=== PATIENT | female | born 1970 | race Caucasian/White ===

== ENCOUNTER 2020-03-23 08:16 | Outpatient (CLI) | payer OTHER, SELFPAY ==
--- NOTE | ~2020-03-23 | MM_ITS ---
EXAMINATION: MM screening [facility] BI w radha HISTORY: Screening mammogram TECHNIQUE: Craniocaudal and mediolateral oblique 3-D tomosynthesis images were obtained and synthetic 2-D images were generated. CAD analysis was submitted and interpreted. COMPARISON: , 09/26/2012 bilateral digital screening mammogram examinations BREAST PARENCHYMAL COMPOSITION: There are scattered areas of fibroglandular density. FINDINGS: There is no evidence of suspicious mass, calcification, or architectural distortion to sugg est malignancy in either breast. There has been no suspicious interval change. IMPRESSION: 1. No mammographic evidence of malignancy. 2. Recommend routine screening mammography in one year. BI-RADS Category 1: Negative Reviewed, dictated and finalized at location A. DONTIC ASSISTANT
--- NOTE | ~2020-03-23 | CT_ITS ---
EXAMINATION: CT sinus wo con DATE: 03/23/2020 08:42 INDICATION: Chronic sinusitis TECHNIQUE: Computed tomography (CT) of the paranasal sinuses was performed without intravenous contra st. The dose-length product was 303.09 mGy-cm. Automated exposure control and iterative reconstructio n technique were employed. COMPARISON: None FINDINGS: There is mucosal thickening of the maxillary, ethmoid and left sphenoid sinuses. There are bilateral yaa bullosa. There is rightward nasal septal deviation. Ostiomeatal units are patent. Ma stoids are pneumatized. IMPRESSION: 1. Mild paranasal sinus disease with rightward nasal septal deviation. Reviewed, dictated and finalized at location A. TER FOLDER
== END 2020-03-23 08:17 | disposition home or self-care (01) ==
PROVIDERS: PCP Internal Medicine; Visit Provider Otolaryngology
DX: J32.9 Chronic sinusitis, unspecified (principal); Z12.31 Encounter for screening mammogram for malignant neoplasm of breast
CPT/HCPCS: 70486; 77063; 77067

== ENCOUNTER → 2020-10-18 00:28 | Outpatient (CLI) | payer OTHER, SELFPAY | PROVIDERS: PCP Internal Medicine; Visit Provider Otolaryngology | DX: Z01.812 Encounter for preprocedural laboratory examination (principal); Z20.822 Contact with and (suspected) exposure to COVID-19 | CPT/HCPCS: C9803; U0003; U0005 ==

== ENCOUNTER 2020-10-21 00:59 | Day surgery (SDC) | payer OTHER, SELFPAY ==
[2020-10-06 13:38] VITALS: BMI 43.5
--- NOTE | 2020-10-20 06:39 | PM.HPGS ---
History of Present Illness History of Present Illness Consent: Risks, benefits, and alternatives have been discussed and questions answered. Patient agrees to proceed with procedure. Chief complaint: septal deviation, turbinate hypertrophy Narrative: Serena Maldonado is a 49 year old female With a long history of inability to breathe out of her nose and chronic sinus complaints she has been on multiple medications and antibiotics she is admitted for septoplasty bilateral inferior turbinectomy maxillary antrostomy and ethmoidectomy Review of Systems Review of Systems: All systems reviewed & are unremarkable except as noted in HPI and below PMFSH Social History Social History Smoking status: Never smoker Alcohol intake: never Substance use: never Substance use type: does not use Spiritual care concerns: No Meds Home Medications and Allergies Home Medications Medication Instructions Recorded Confirmed Type cetirizine-pseudoephedrine 1 tablet PO DAILY 10/06/20 10/06/20 History [Zyrtec-D] cholecalciferol (vitamin D3) 125 mcg PO DAILY 10/06/20 10/06/20 History [Vitamin D3] vitamin B complex [B 1 tablet PO DAILY 10/06/20 10/06/20 History Complex-Vitamin B12] Allergies Allergy/AdvReac Type Severity Reaction Status Date / Time Cephalosporins Allergy Mild Rash Verified 10/06/20 13:36 Exam Narrative: Exam Narrative: chest clear however the rims abdomen soft was negative septum deviated to the right with marked obstruction Assessment and Plan Additional Plan plan is a septoplasty bilateral inferior turbinectomy maxillary antrostomy and ethmoidectomy
--- NOTE | 2020-10-21 06:10 | WPDHPUPDATE1 ---
History and Physical Update Update Date/Time: 10/21/20 06:10 History and Physical has been reviewed, including an updated exam of the patient. There are NO changes in the patient's condition. Risks, benefits, and alternatives have been discussed and questions answered. Patient agrees to proceed with procedure.
[2020-10-21 08:14] VITALS: BP 143/97; PULSE 78; RESP 20; TEMP 36.4; O2SAT 98; BMI 44.0
--- NOTE | 2020-10-21 08:15 | P.PNAN_ITS ---
Anes - Initial Pre Proc Eval Procedure: Operation Date: 10/21/20 08:45 Proposed Procedures p Image Guided, Bilateral Inferior Turbinectomy, Bilateral Maxillary Antrostomy, Ethmoidectomies - Colin Vela MD s Septoplasty - Colin Vela MD Date/Time: 10/21/20 08:15 Surgeon: Colin Vela MD Pre Op Diagnosis: septal deviation, turbinate hypertrophy Patient Data Age: 49 Gender: F Height: 1.68 m Weight: 122.47 kg Allergies Allergy/AdvReac Type Severity Reaction Status Date / Time Cephalosporins Allergy Mild Rash Verified 10/06/20 13:36 Home Medications Medication Instructions Recorded Confirmed Type cetirizine-pseudoephedrine 1 tablet PO DAILY 10/06/20 10/06/20 History [Zyrtec-D] cholecalciferol (vitamin D3) 125 mcg PO DAILY 10/06/20 10/06/20 History [Vitamin D3] vitamin B complex [B 1 tablet PO DAILY 10/06/20 10/06/20 History Complex-Vitamin B12] Patient hx anesthesia problems: none Family hx anesthesia problems: none [facility] Past Medical History Medical History (Updated 10/21/20 @ 08:19 by Sami Cohn MD) Morbid obesity Surgical History Surgical History (Updated 10/21/20 @ 08:19 by Sami Cohn MD) H/O sinus surgery Social History Social History Smoking status: Never smoker Alcohol intake: never Substance use: never Substance use type: does not use Living arrangements: with family Spiritual care concerns: No Anes - Eval Final PreProcedure Day of Procedure 10/21/20 08:15 Patient weight: morbidly obese Heart: regular rate and rhythm Lungs: clear to auscultation Airway: Mallampati scale class II Neurological: alert and oriented Last oral intake: >/= 8 hours ASA classification: III Emergent: no Anesthetic plan: proceed Anesthesia type and monitoring: general ETT and standard monitoring Informed Consent: The patient's anesthetic plan and its attendant risks and benefits were discussed with the patient/family/POA. Questions were solicited and answers provided to the satisfaction of the patient/family/POA.
[2020-10-21] MEDS: LACTATED RINGERS 1,000 ML 30 ML IV CONT ×2 (08:21→10:11)
[2020-10-21] MEDS: ACETAMINOPHEN 500 MG TABLET 1000 MG PO (08:24)
[2020-10-21] MEDS: COCAINE HCL (*CRX) 4% TOP SOLN 4 ML VIAL 1 APPLIC TOPICAL (09:29)
[2020-10-21] MEDS: LIDO 1%/EPINEPHRINE 1:100,000 20 ML VIAL 15 ML INFILTRATE (09:54)
--- NOTE | 2020-10-21 10:01 | W.PM.PROC2 ---
Procedure Note - Detailed Date of Procedure 10/25/20 Pre-op Diagnosis septal deviation, turbinate hypertrophy bilateral ethmoid sinusitis Post-op Diagnosis same Procedure Performed Septoplasty bilateral anterior posterior ethmoidectomy bilateral maxillary antrostomy inferior turbinectomy bilateral Surgeon Colin Vela MD Description of Procedure Patient was prepped and draped fashion general anesthesia the nose was packed with 4% cocaine cottonoids and injected xylocaine with adrenaline on the right side the middle turbinate was medialized yaa bullosa opened the ethmoid was opened with a micro debrider the maxillary antrum was enlarged and connected with the ethmoid this procedure was repeated in the other ear was other side with similar findings a right christina transfix was made left anterior and posterior is elevated the bony cartilage junction and a right posterior tunnel elevated bony deviation was removed a strip of septal cartilage remove the maxillary crest a swelling the cartilage the bony remnants of the midline incision closed with 4 0 chromic and Yadav splints sutured with 2 0 silk hemostatic sponge was placed in both ethmoids left right yaa bullosa was opened and enlarged with micro debride her and forceps bilateral inferior turbinates were outfractured patient was awakened returned to recovery patient Estimated Blood Loss 10 Packing Yes Pathology none sent Complications No immediate complications Condition stable Disposition PACU
[2020-10-21 10:03] VITALS: BP 142/92; PULSE 86; RESP 18; TEMP 37.3; O2SAT 100
[2020-10-21 10:15] VITALS: BP 139/83; PULSE 80; RESP 12; O2SAT 100
[2020-10-21 10:30] VITALS: BP 145/89; PULSE 80; RESP 16; O2SAT 97
[2020-10-21 10:43] VITALS: BP 144/85; PULSE 78
[2020-10-21 11:10] VITALS: BP 136/78; PULSE 72
== END 2020-10-21 11:22 | disposition home or self-care (01) ==
PROVIDERS: PCP Internal Medicine; Visit Provider Otolaryngology
PROC: (CPT 31255; principal; 2020-10-21 08:45)
PROC: (CPT 30520; 2020-10-21 08:45)
DX: J34.2 Deviated nasal septum (principal); J34.3 Hypertrophy of nasal turbinates; J32.2 Chronic ethmoidal sinusitis; E66.01 Morbid (severe) obesity due to excess calories; Z68.41 Body mass index [BMI] 40.0-44.9, adult
CPT/HCPCS: 31255; 31256; 30140; 30520; A9270; J0330; J1100; J1170; J2250; J2405; J2704; J3010; J7120

== ENCOUNTER 2022-05-18 07:49 | Outpatient (CLI) | payer OTHER, SELFPAY ==
--- NOTE | ~2022-05-18 | MM_ITS ---
EXAMINATION: MM screening [facility] BI w radha HISTORY: Screening mammogram TECHNIQUE: Craniocaudal and mediolateral oblique 3-D tomosynthesis images were obtained and synthetic 2-D images were generated. CAD analysis was submitted and interpreted. COMPARISON: 03/23/2020, 10/23/2017, 09/26/2012 BREAST PARENCHYMAL COMPOSITION: There are scattered areas of fibroglandular density. FINDINGS: No suspicious mass, calcification, or architectural distortion are identified in either clarence ast to suggest malignancy. There has been no suspicious interval change. IMPRESSION: 1. No mammographic evidence of malignancy. 2. Recommend routine screening mammography in one year. BI-RADS Category 1: Negative Reviewed, dictated and finalized at location A. SFORCE BUSINESS ANALYST
== END 2022-05-18 07:50 | disposition home or self-care (01) ==
PROVIDERS: PCP Internal Medicine
DX: Z12.31 Encounter for screening mammogram for malignant neoplasm of breast (principal)
CPT/HCPCS: 77063; 77067

== ENCOUNTER 2022-07-16 08:02 | Emergency (ER) | payer OTHER, SELFPAY ==
[2022-07-16 08:08] VITALS: BP 153/90; PULSE 82; RESP 20; TEMP 36.6; O2SAT 98
--- NOTE | 2022-07-16 08:10 | ED.URI ---
HPI - URI/Sore Throat General Chief Complaint: Ear Stated Complaint: Ear Pain Time Seen by Provider: 07/16/22 08:12 Source: patient, RN notes reviewed and old records reviewed Mode of arrival: ambulatory Limitations: no limitations History of Present Illness HPI Narrative: 51 year old female who presents to express care accompanied by spouse with complaints of right ear pain on Sunday with some pink tinged fluid with pressure with muffled hearing Patient reports that she saw ENT on the 2nd of the month and was treated with sinus infection with Doxycycline at that time and has been using Flonase. Patient reports that she has been taking ibuprofen for pain and continues to use her Flonase daily, reports no known fevers. MD elicited complaint: rhinorrhea and other (right ear pain and drainage) Pertinent past history: sinusitis Onset (ago): day(s) (day 3 of symptoms) Pain scale (0-10): 8 Able to tolerate fluids by mouth: Yes Treatments prior to arrival: ibuprofen Related Data Home Medications Medication Instructions Recorded Confirmed cholecalciferol (vitamin D3) 125 125 mcg PO DAILY 10/06/20 07/16/22 mcg (5,000 unit) tablet (Vitamin D3) vitamin B complex (B 1 tablet PO DAILY 10/06/20 07/16/22 Complex-Vitamin B12 tablet) Allergies Allergy/AdvReac Type Severity Reaction Status Date / Time Cephalosporins Allergy Mild Rash Verified 07/16/22 08:16 Review of Systems Review of Systems: CONSTITUTIONAL: Denies malaise, chills, sweats, or fever. EYES: Denies visual changes, redness, or discharge. ENT: Reports rhinorrhea, congestion, sinus pain, right otalgia no sore throat. CARDIOVASCULAR: Denies chest pain, palpitations, or edema. RESPIRATORY: Reports no cough.? Denies dyspnea. GASTROINTESTINAL: Denies abdominal pain, nausea, vomiting, diarrhea SKIN: Denies rash or itching. MUSCULOSKELETAL: Denies myalgia. NEUROLOGIC: Denies headache. All systems reviewed & are unremarkable except as noted in HPI and below PMFSH Past Medical History Medical History Morbid obesity Surgical History Surgical History H/O sinus surgery Social History Social History Smoking status: Never smoker Alcohol intake: never Substance use: never Substance use type: does not use Lack of Transportation: No Lack of Food: Never True Current Housing: I Have Housing Concerned About Future Housing: No Difficulty Paying Gas/Electric Bills: No Difficulty Paying for Meds: No Currently Unemployed: No Education: Bachelor's Degree Difficulty w/ Childcare or Family Care: No Living arrangements: with family Spiritual care concerns: No Comments At time of signature, agree with nursing past medical, surgical, social and family history. There is no relevant family history pertinent to the presenting complaint Exam Narrative: GENERAL: Well-appearing, well-nourished, and in no acute distress. HEAD: Normocephalic EYES: PERRLA, conjunctivae clear ENT: Nares clear, turbinates edematous and erythematous, clear discharge. Mucous membranes moist. Right TM red with bloody drainage with perforation left TM pearly centeno with dull light reflex bilaterally; no tragal tenderness. Oropharynx erythematous without lesions. Tonsils not enlarged and without exudate, no drooling, no hoarseness, no trismus, uvula midline. NECK: Supple. No lymphadenopathy CHEST: Clear to auscultation, breath sounds equal. No wheezing, rhonchi, rales, or stridor. No respiratory distress, speaks in full sentences. No cough noted SaO2 98% room air HEART: Regular rate and rhythm. No murmur heard. SKIN: Warm, dry, no rash. NEURO: Alert and oriented x3. PSYCH: Normal mood and affect Course Course Emergency Course: Patient is aware of diagnosis, understands and agrees
== END 2022-07-16 08:40 | disposition home or self-care (01) ==
PROVIDERS: Emergency Provider Registered Nurse; PCP Internal Medicine
DX: H66.001 Acute suppurative otitis media without spontaneous rupture of ear drum, right ear (principal)
CPT/HCPCS: 99213; G0463

== ENCOUNTER 2022-08-22 12:50 | Outpatient (CLI) | payer OTHER, SELFPAY | END 2022-08-22 12:51 | disposition home or self-care (01) | LOC: ANHAUDIO 12:53 | PROVIDERS: PCP Internal Medicine; Visit Provider Otolaryngology | DX: H83.01 Labyrinthitis, right ear (principal); H91.93 Unspecified hearing loss, bilateral | CPT/HCPCS: 92557; 92567 ==

== ENCOUNTER 2023-05-28 14:48 | Outpatient (CLI) | payer OTHER, SELFPAY ==
--- NOTE | ~2023-05-28 | MM_ITS ---
EXAMINATION: MM screening [facility] BI w radha HISTORY: Screening TECHNIQUE: Craniocaudal and mediolateral oblique 3-D tomosynthesis images were obtained and synthetic 2-D images were generated. CAD analysis was submitted and interpreted. COMPARISON: Comparison to multiple prior studies sequentially, with oldest reviewed study dated 10/23. BREAST PARENCHYMAL COMPOSITION: Breast composed of scattered areas of fibroglandular density FINDINGS: There is no evidence of suspicious mass, calcification, or architectural distortion to sugg est malignancy in either breast. There has been no suspicious interval change. IMPRESSION: 1. No mammographic evidence of malignancy. 2. Recommend routine screening mammography in one year. BI-RADS Category 1: Negative Reviewed, dictated and finalized at location A. 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
== END 2023-05-28 14:49 | disposition home or self-care (01) ==
PROVIDERS: PCP Internal Medicine
DX: Z12.31 Encounter for screening mammogram for malignant neoplasm of breast (principal)
CPT/HCPCS: 77063; 77067

== ENCOUNTER 2023-08-27 09:48 | Outpatient (CLI) | payer OTHER, SELFPAY ==
--- NOTE | ~2023-08-27 | CT_ITS ---
EXAMINATION: CT sinus wo con DATE: 08/27/2023 10:07 INDICATION: Sinusitis TECHNIQUE: Computed tomography (CT) of the paranasal sinuses was performed without intravenous contra st. The dose-length product was 279.81 mGy-cm. Automated exposure control and iterative reconstructio n technique were employed. COMPARISON: CT dated 03/23/2020 FINDINGS: There is mucosal thickening of the left frontal, maxillary and ethmoid sinuses. There are s urgical changes consistent with resection of the ostiomeatal units. There is a right mastoid air effu roxanne. Rightward nasal septal deviation. There is mild mucoperiosteal reaction of the maxillary sinuse s. IMPRESSION: 1. Moderate chronic sinusitis. Reviewed, dictated and finalized at location B.
== END 2023-08-27 09:49 | disposition home or self-care (01) ==
LOC: CHSIMG 09:50
PROVIDERS: PCP Internal Medicine; Visit Provider Otolaryngology
DX: J32.9 Chronic sinusitis, unspecified (principal); J33.9 Nasal polyp, unspecified
CPT/HCPCS: 70486

== ENCOUNTER 2023-08-28 00:11 | Day surgery (SDC) | payer OTHER, SELFPAY ==
[2023-08-14 16:07] VITALS: BMI 39.3
[2023-08-28 06:40] VITALS: BP 143/97; PULSE 86; RESP 18; TEMP 36.1; O2SAT 98; BMI 38.2
[2023-08-28] MEDS: LACTATED RINGERS 1,000 ML 150 ML IV CONT (07:00)
--- NOTE | 2023-08-28 08:04 | PM.IMHP ---
H&P: HPI History of Present Illness Date/Time: 08/28/23 08:04 Chief Complaint: Screening for colorectal Narrative: This is a 52-year-old woman who presents for her 1st colonoscopy. She denies any hematochezia or melena. She is adopted and does not know her family history. Review of Systems Review of Systems: All systems reviewed & are unremarkable except as noted in HPI and below Constitutional: Constitutional: Denies chills, Denies fever(s), Denies headache(s) and Denies weight loss Eyes: Eyes: Denies change in vision ENT: Denies dizziness, Denies headache(s), Denies neck mass and Denies throat swelling Cardiovascular: Cardiovascular: Denies chest pain, Denies lightheadedness and Denies dyspnea Respiratory: Respiratory: Denies cough, Denies dyspnea and Denies wheezing Gastrointestinal: Gastrointestinal: Denies abdominal pain, Denies change in bowel habits, Denies nausea and Denies vomiting Genitourinary: Genitourinary: Denies hematuria and Denies dysuria Musculoskeletal: Musculoskeletal: Reports as per HPI Integumentary/Breasts: Skin/Breast: Reports as per HPI Neurologic: Denies dizziness and Denies headache(s) Allergic/Immunologic: Allergic/Immunologic: Denies throat swelling and Denies wheezing PMF Past Medical History Medical History Morbid obesity Surgical History Surgical History H/O sinus surgery Social History Social History Smoking status: Never smoker Alcohol intake: current Substance use: never Substance use type: does not use Lack of Transportation: No Lack of Food: Never True Current Housing: I Have Housing Concerned About Future Housing: No Difficulty Paying Gas/Electric Bills: No Difficulty Paying for Meds: No Currently Unemployed: No Education: Bachelor's Degree Difficulty w/ Childcare or Family Care: No Living arrangements: with family Spiritual care concerns: No Meds Home Medications and Allergies Home Medications Medication Instructions Recorded Confirmed Type dupilumab 300 mg/2 mL subcutaneous 300 mg subcut .2xmonthly 02/07/23 08/28/23 History pen injector (Dupixent) budesonide 0.25 mg/2 mL suspension 0.25 mg (2 mL) irrigation BID #120 08/04/23 08/28/23 Rx for nebulization mL Allergies Allergy/AdvReac Type Severity Reaction Status Date / Time Cephalosporins Allergy Mild Rash Verified 08/28/23 06:48 Vital Signs Vital Signs - 24 hr 08/28/23 06:40 Temperature 36.1 C L Pulse Rate 86 Respiratory Rate 18 Blood Pressure 143/97 H Pulse Oximetry 98 Oxygen Delivery Room Air Exam Const: General: no acute distress and alert Orientation/consciousness: patient oriented x3 HENMT: Head: normocephalic and atraumatic Ears: hearing grossly normal bilaterally Face/Nose/Sinus: Normal nares present Mouth: Yes Normal oral and palatal mucosa present Eyes: Periorbital: periorbital findings normal Sclera: sclerae normal EOM: EOMs intact bilaterally Neck: Neck: normal visual inspection, no lymphadenopathy and trachea midline Chest: Chest palpation & inspection: normal inspection of the chest Resp: Effort & Inspection: normal respiratory effort Auscultation: clear to auscultation bilaterally Cardio: Jugular venous distension: no JVD Rate: regular rate Rhythm: regular rhythm Heart sounds: S1 normal heart sound present and S2 normal heart sound present Peripheral pulses: Peripheral pulses 2+ throughout GI: Inspection: normal to inspection GI Palp: Yes Soft to palpation, No Tenderness to palpation present (GI), No Guarding due to palpation present (GI) and No Rebound tenderness present Percussion: Yes normal to percussion Auscultation: normal bowel sounds : General: Yes no CVA tenderness Back/Spine/Pelvis: Back: no CVA tenderness Neuro: Genera
--- NOTE | 2023-08-28 08:07 | P.PNAN_ITS ---
Anes - Initial Pre Proc Eval Procedure: Operation Date: 08/28/23 08:00 Proposed Procedures p Screening Colonoscopy - Dario Manzano DO Date/Time: 08/28/23 08:07 Surgeon: Dario Manzano DO Pre Op Diagnosis: Screening for malignant neoplasm of colon Patient Data Age: 52 Gender: F Height: 1.68 m Weight: 107.4 kg Last Vital Signs Temp 97.0 F L 08/28/23 06:40 Pulse 86 08/28/23 06:40 Resp 18 08/28/23 06:40 BP 143/97 H 08/28/23 06:40 Pulse Ox 98 08/28/23 06:40 O2 Del Method Room Air 08/28/23 06:40 Allergies Allergy/AdvReac Type Severity Reaction Status Date / Time Cephalosporins Allergy Mild Rash Verified 08/28/23 06:48 Home Medications Medication Instructions Recorded Confirmed Type dupilumab 300 mg/2 mL subcutaneous 300 mg subcut .2xmonthly 02/07/23 08/28/23 History pen injector ([employer]) budesonide 0.25 mg/2 mL suspension 0.25 mg (2 mL) irrigation BID #120 08/04/23 08/28/23 Rx for nebulization mL Patient hx anesthesia problems: none Family hx anesthesia problems: none Results Review: All pre-operative results and documents have been reviewed as part of the pre- operative evaluation. [facility] Past Medical History Medical History Morbid obesity Surgical History Surgical History H/O sinus surgery Social History Social History Smoking status: Never smoker Alcohol intake: current Substance use: never Substance use type: does not use Lack of Transportation: No Lack of Food: Never True Current Housing: I Have Housing Concerned About Future Housing: No Difficulty Paying Gas/Electric Bills: No Difficulty Paying for Meds: No Currently Unemployed: No Education: Bachelor's Degree Difficulty w/ Childcare or Family Care: No Living arrangements: with family Spiritual care concerns: No Anes - Eval Final PreProcedure Day of Procedure 08/28/23 08:07 Patient weight: morbidly obese Heart: regular rate and rhythm Lungs: clear to auscultation Airway: Mallampati scale class II Neurological: alert and oriented Last oral intake: >/= 8 hours ASA classification: III Emergent: no Anesthetic plan: proceed Anesthesia type and monitoring: general GIVS and standard monitoring Results Review: All pre-operative results and documents have been reviewed as part of the pre- operative evaluation. Informed Consent: The patient's anesthetic plan and its attendant risks and benefits were discussed with the patient/family/POA. Questions were solicited and answers provided to the satisfaction of the patient/family/POA.
[2023-08-28 08:51] VITALS: BP 106/66; PULSE 75; RESP 22; O2SAT 94
[2023-08-28 09:01] VITALS: BP 115/72; PULSE 70; RESP 22; O2SAT 94
[2023-08-28 09:11] VITALS: BP 115/68; PULSE 68; RESP 20; O2SAT 96
== END 2023-08-28 09:21 | disposition home or self-care (01) ==
PROVIDERS: PCP Internal Medicine; Visit Provider Surgery
PROC: 0DJD8ZZ Inspection of Lower Intestinal Tract, Via Natural or Artificial Opening Endoscopic (ICD-10-PCS; CPT 45378; principal; 2023-08-28 08:00)
DX: Z12.11 Encounter for screening for malignant neoplasm of colon (principal); E66.01 Morbid (severe) obesity due to excess calories; Z68.38 Body mass index [BMI] 38.0-38.9, adult
CPT/HCPCS: 45378; J2001; J2704; J7120

== ENCOUNTER 2023-10-16 00:34 | Day surgery (SDC) | payer OTHER, SELFPAY ==
[2023-10-02 15:37] VITALS: BMI 38.7
--- NOTE | 2023-10-02 15:41 | SUR.PREOP ---
Report to the Outpatient Waiting Room, entrance under the green pavilion located off [facility], at time 0930 on date 10/16/23. Planned Procedure Time: 1130. Time changes happen often and if your time is changed the preop area will call you the afternoon before. - You and your visitor will be asked to self-screen and do not enter if you have any COVID symptoms. - A mask is optional within the hospital at this time. Patients may have clear liquids (water, carbonated beverages, clear teas, apple juice) until 3 hours prior to surgery with a maximum of 20 ounces. - No food from midnight until time of surgery before 0830 am - Infants may have breast milk until 4 hours before surgery, infant formula 6 hours prior to surgery. - Children will be allowed to drink immediately following surgery. If applicable, please bring a bottle or sippy cup to assist with drinking. Juice, water, soda, and popsicles are readily available. For infants on formula, please bring formula the day of surgery. Pacifiers are allowed. Take the following medications with a SIP of water the morning of surgery: n/a DO NOT STOP ANY OF YOUR OTHER PRESCRIPTION MEDICATIONS PRIOR TO SURGERY ?EXCEPT THE FOLLOWING Medications to discontinue per physician n/a Date to take last dose Please no make-up, nail palauan, hairspray, perfume, deodorant, or body powder the day of surgery. No jewelry (including any body piercings) or valuables the day of surgery, leave them at home. Please take a shower or bath the night before, or the morning of, surgery with an antibacterial soap. Wear comfortable, loose fitting clothing. Children are encouraged to wear pajamas. - Jewelry must be removed prior to entering the operating room. Rings and piercings that are not removed may be cut off. - The hospital will not accept responsibility for valuables. - Please leave all valuables, including medications, at home the day of surgery. If you are going home after surgery, a licensed driver service technician must drive you home. - NO public transportation without another adult if you receive anesthesia. - We recommend that an adult stay with you for 24 hours following discharge. - We also recommend that you do not drive, make important decision, drink alcoholic beverages, or take any drugs that were not prescribed by your health care provider for at least 24 hours after your discharge time. For Pediatric surgeries, we recommend two adults accompany the child home. Follow any additional instructions given to you from your surgeon. If you or anyone in your household have experienced Covid symptoms in the past week, please notify your surgeon or the nurse liaison at the phone number below for possible testing. Telephone instructions given to __patient__and asked if any additional questions and then verbalized understanding. Patient advised to call surgeon office or pre surgery nurse liaison [phone] if any additional questions.
[2023-10-16] VITALS (8 sets, daily range): BP systolic 125–156; BP diastolic 70–98; PULSE 61–84; RESP 11–22; TEMP 36.9; O2SAT 97–100
--- NOTE | 2023-10-16 07:53 | P.HP_ITS ---
H&P: HPI History of Present Illness Date/Time: 10/16/23 07:53 Chief Complaint: Nasal polyps chronic sinusitis septal deviation Narrative: planned procedure Review of Systems Review of Systems: All systems reviewed & are unremarkable except as noted in HPI and below PMFSH Past Medical History Medical History Morbid obesity Surgical History Surgical History H/O sinus surgery Social History Social History Smoking status: Never smoker Alcohol intake: current Substance use: never Substance use type: does not use Lack of Transportation: No Lack of Food: Never True Current Housing: I Have Housing Concerned About Future Housing: No Difficulty Paying Gas/Electric Bills: No Difficulty Paying for Meds: No Currently Unemployed: No Education: Bachelor's Degree Difficulty w/ Childcare or Family Care: No Living arrangements: with family Spiritual care concerns: No Meds Home Medications and Allergies Home Medications Medication Instructions Recorded Confirmed Type No Home Medications 10/02/23 10/02/23 History Allergies Allergy/AdvReac Type Severity Reaction Status Date / Time Cephalosporins Allergy Mild Rash Verified 08/28/23 06:48 Exam Narrative: nasal polyps chronic sinusitis septal deviation Assessment and Plan Assessment and plan (1) Nasal polyps: Code(s): J33.9 - Nasal polyp, unspecified Status: Acute Assessment and Plan: plan OR for image guided endoscopic bilateral maxillary antrostomies possible septoplasty as well as middle turbinectomies. risks discussed including bleeding infection damage to surrounding structures CSF leak brain brain damage change in vision total blindness septal perforation need for further procedures failure to resolve symptoms damage any structures the clavicle by myself damage to any structure induction and maintenance of an esthesia including vocal cord paralysis need for prolonged follow-up failure to resolve symptoms time off work time off school inherent risk of narcotic use inherent risk medication use. Patient voiced understanding and agreed. (2) Chronic sinusitis: Code(s): J32.9 - Chronic sinusitis, unspecified Status: Acute (3) Deviated septum: Code(s): J34.2 - Deviated nasal septum Status: Acute
--- NOTE | 2023-10-16 07:54 | WPDHPUPDATE1 ---
History and Physical Update Update Date/Time: 10/16/23 07:54 History and Physical has been reviewed, including an updated exam of the patient. There are NO changes in the patient's condition. Risks, benefits, and alternatives have been discussed and questions answered. Patient agrees to proceed with procedure.
[2023-10-16] MEDS: LACTATED RINGERS 1,000 ML 30 ML IV CONT ×2 (09:35→12:35)
--- NOTE | 2023-10-16 09:55 | P.PNAN_ITS ---
Anes - Initial Pre Proc Eval Procedure: Operation Date: 10/16/23 11:30 Proposed Procedures p Image Guided Revision Bilateral Maxillary Antrostomy, Possible Middle Turbinectomy - Collins King MD s Possible Septoplasty - Collins King MD Date/Time: 10/16/23 09:55 Surgeon: Colilns King MD Pre Op Diagnosis: Chr Sinusitis, Nasal Polyps Patient Data Age: 52 Gender: F Height: 1.68 m Weight: 108.87 kg Allergies Allergy/AdvReac Type Severity Reaction Status Date / Time Cephalosporins Allergy Mild Rash Verified 08/28/23 06:48 Home Medications Medication Instructions Recorded Confirmed Type No Home Medications 10/02/23 10/02/23 History Patient hx anesthesia problems: none Family hx anesthesia problems: none Results Review: All pre-operative results and documents have been reviewed as part of the pre- operative evaluation. [facility] Past Medical History Medical History Morbid obesity Surgical History Surgical History H/O sinus surgery Social History Social History Smoking status: Never smoker Alcohol intake: current Substance use: never Substance use type: does not use Lack of Transportation: No Lack of Food: Never True Current Housing: I Have Housing Concerned About Future Housing: No Difficulty Paying Gas/Electric Bills: No Difficulty Paying for Meds: No Currently Unemployed: No Education: Bachelor's Degree Difficulty w/ Childcare or Family Care: No Living arrangements: with family Spiritual care concerns: No Anes - Eval Final PreProcedure Day of Procedure 10/16/23 09:55 Patient weight: obese Heart: regular rate and rhythm Lungs: clear to auscultation Airway: Mallampati scale class III Neurological: alert and oriented Last oral intake: >/= 8 hours ASA classification: II Emergent: no Anesthetic plan: proceed Anesthesia type and monitoring: general ETT and standard monitoring Results Review: All pre-operative results and documents have been reviewed as part of the pre- operative evaluation. 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 Informed Consent: The patient's anesthetic plan and its attendant risks and benefits were discussed with the patient/family/POA. Questions were solicited and answers provided to the satisfaction of the patient/family/POA.
[2023-10-16] MEDS: ACETAMINOPHEN 500 MG TABLET 1000 MG PO (10:07)
[2023-10-16] MEDS: CLINDAMYCIN 900 MG/D5W 50 ML 900 MG/50 ML PIGGYBACK 50 MG IVPB (11:07)
[2023-10-16] MEDS: LIDO 1%/EPINEPHRINE/PF 1:200,000 30 ML VIAL 20 ML XX (11:21)
--- NOTE | 2023-10-16 12:54 | W.PM.PROC2 ---
Procedure Note - Detailed Date of Procedure 10/16/23 Pre-op Diagnosis Chr Sinusitis, Nasal Polyps Post-op Diagnosis Same Procedure Performed Bilateral revision maxillary antrostomies. Bilateral middle turbinectomies. Surgeon Collins King MD Anesthesia General Indications See above Findings severely polyps middle turbinates with mucoid purulence inside them. Surgical antrostomies on the maxillary sinuses did not connect to the natural os. This was corrected. minimal bleeding. 20 cc max Description of Procedure patient identified consent verified preop. Patient brought to the operating. Time-out performed. General anesthesia induced endotracheal tube secured airway. Patient prepped draped position procedure confirmed 2nd time-out performed. Image guidance initiated confirmed. Afrin-soaked pledgets placed for 5 minutes then removed. 0 degree endoscope utilized. Total 5 cc 1% lidocaine 1 100,000 parts epinephrine checked the bilateral middle turbinates. Middle turbinates removed straight through cut stumps cauterized with Bovie suction electrocautery setting of 15. Maxillary antrostomies were not connected to the natural os these were connected using straight through cut backbiter and microdebrider as well as rad 40 microdebrider. At the end the procedure bilateral nasal passages copiously irrigated out with sterile normal saline. Nova pack was placed bilaterally. This marked the end of the procedure. I performed all dictated portions 20 cc max more like 10 cc of blood loss. Care the patient given back to Anesthesiology patient taken to PACU. Estimated Blood Loss 20 Drains No Packing Yes (novapak) Pathology None sent Complications No immediate complications Condition Stable Disposition PACU [facility] Billing Surgery - Charge Forward: Surgery Billing
== END 2023-10-16 14:15 | disposition home or self-care (01) ==
PROVIDERS: PCP Internal Medicine; Visit Provider Otolaryngology
PROC: (CPT 31256; principal; 2023-10-16 11:30)
DX: J32.9 Chronic sinusitis, unspecified (principal); J33.9 Nasal polyp, unspecified; E66.9 Obesity, unspecified; Z68.38 Body mass index [BMI] 38.0-38.9, adult
CPT/HCPCS: 31256; 30999; 61782; A9270; J0330; J1100; J1170; J1200; J2250; J2371; J2405; J2704; J3010; J7050; J7120

== ENCOUNTER 2023-10-31 19:51 | Outpatient (NON) | payer OTHER, SELFPAY | END 2023-10-31 19:52 | disposition home or self-care (01) | LOC: ANHLAB 19:52 | PROVIDERS: PCP Internal Medicine; Visit Provider Otolaryngology | DX: J32.9 Chronic sinusitis, unspecified (principal) | CPT/HCPCS: 87070; 87075; 87076; 87185; 87205 ==

== ENCOUNTER 2024-06-04 09:11 | Outpatient (CLI) | payer OTHER, SELFPAY ==
--- NOTE | ~2024-06-04 | MM_ITS ---
EXAMINATION: MM screening anitha BI w radha HISTORY: Screening TECHNIQUE: Craniocaudal and mediolateral oblique 3-D tomosynthesis images were obtained and synthetic 2-D images were generated. CAD analysis was submitted and interpreted. COMPARISON: Comparison to multiple prior studies sequentially, with oldest reviewed study dated 10/23. BREAST PARENCHYMAL COMPOSITION: Not dense: There are scattered areas of fibroglandular density. FINDINGS: There is no evidence of suspicious mass, calcification, or architectural distortion to sugg est malignancy in either breast. There has been no suspicious interval change. IMPRESSION: 1. No mammographic evidence of malignancy. 2. Recommend routine screening mammography in one year. BI-RADS Category 1: Negative Reviewed, dictated and finalized at location B. NUMBER
--- OUTSIDE RECORDS SUMMARY | 2024-06-04 09:43 | XMS_ITS | Clinical Summary ---
Author Organization [facility] Address [address] 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
--- OUTSIDE RECORDS SUMMARY | 2024-06-04 09:43 | XMS_ITS | Clinical Summary ---
Author Organization [facility] Address [address] [place] [address] Phone Care Team Providers Care Technology Teacher Name Role Phone Clinic, Pcp Primary Care Provider Unavailabl e Allergies Active Allergy Reactions Criticality Noted Date Comments Cephalosporins Rash Medium Medications acidophilus-pect in, citrus 100 million cell-10 mg capsule Take by mouth daily Active albuterol HFA (PROVENTIL HFA,VENTOLIN HFA,PROAIR HFA) 90 mcg/actuation inhaler 03/28/2023 Active Dupixent Pen pen injector 03/23/2023 Active budesonide (PULMICORT) 1 mg/2 mL nebulizer solution 01/17/2024 Active Active Problems Problem Noted Date Diagnosed Date Perimenopausal 01/11/2022 TIFFANY (stress urinary incontinence, female) 2019 Overview (11/17/2019): mild Assessment & Plan (11/17/2019 10:58 AM CDT): Discussed options including Kegel exercises, pelvic floor physical therapy and surgical correction. Kegel exercise instruction given. Encounter for gynecological examination without abnormal finding 08/07/2017 Assessment & Plan (04/16/2024 3:02 PM DISTRIBUTION SPECIALIST): Pap smear and breast exam done. Pap done at three years due to immunosuppressive drug use. Schedule mammogram. Return in one year. Assessment & Plan (04/11/2023 9:11 PM DISTRIBUTION SPECIALIST): Pelvic exam and breast exam done. Schedule mammogram and colonoscopy. Discussed perimenopausal changes. Return in one year. Assessment & Plan (01/11/2022 9:47 PM CDT): Pelvic exam and breast exam done. Schedule mammogram and colonoscopy. Discussed Remifemin for hot flashes. Return in one year. Assessment & Plan (2020 10:15 PM CDT): Pap smear and breast exam done. Schedule mammogram. Return in one year. Assessment & Plan (11/17/2019 10:58 AM CDT): Pelvic exam and breast exam done. Schedule mammogram. Return in one year. Assessment & Plan (08/27/2018 7:32 PM CDT): Pap smear and breast exam done. Schedule mammogram. Return in one year. Assessment & Plan (08/07/2017 10:33 PM CDT): Pelvic and breast exam done. Schedule mammogram. Calcium and vitamin D info given to patient. Rtn in one year. Encounters Date Type Department Care Team Description 04/16/2024 2:00 PM DISTRIBUTION SPECIALIST - 04/16/2024 11:59 PM DISTRIBUTION SPECIALIST Hospital Encounter [facility] [address] [place] [address] Immunosuppression due to drug therapy (HCC); Cervical cancer screening Discharge Disposition: Discharge to home or self care 04/16/2024 9:00 AM DISTRIBUTION SPECIALIST Office Visit [facility] [address], [place] [address] Jovanna Valderrama MD Encounter for gynecological examination without abnormal finding (Primary Dx); Candidal vulvovaginitis; Immunosuppression due to drug therapy (HCC); Cervical cancer screening from Last 3 Months Immunizations Name Administration Dates Next Due MMRV 07/17/2017 Surgical History Surgery Date Site/Laterality Comments SINUS SURGERY 10/25/2020 VAGINAL DELIVERY 04/30/1998 - 04/29/1999 ESOPHAGUS SURGERY 04/30/1975 - 04/29/1976 Medical History Medical History Date Comments Migraines 1998 35W0D week 5lb(s ) 15 oz Female Family History * Patient is adopted Medical History Relation Name Comments Diabetes Father Breast cancer Neg Hx Colon cancer Neg Hx Ovarian cancer Neg Hx Relation Name Status Comments Father Social History Tobacco Use Types Packs/Day Years Used Date Smoking Tobacco: Never Smokeless Tobacco: Never Tobacco Cessation:Counseling Given: Not Answered Alcohol Use Standard Drinks/Week Comments No 0 (1 standard drink = 0.6 oz pur e alcohol) PHQ-2 Answer Date Recorded PHQ-2 Total Score (If total score is 3 or more points, staff should administer the PHQ-9) 0 2020 Comments No Sex and Gender Information Value Date Recorded Sex Assigned at Not on file Legal Sex Female 7:26 PM DISTRIBUTION SPECIALIST Gender Identity Not on file Sexual Orientation Not on file Obstetrics History Para Term AB IAB SAB Ectopic Multiple Livin g Live Births 1 1 Date Outcome GA Total Labor Labor/2nd/3rd Weight Sex Type Anes PTL Emeli A1 A5 Name Clin 1998 35w0 d 2.693 kg (5 lb 15 oz) F Vag-S pont Living Last Filed Vital Signs Vital Sign Reading Time Taken Comments Blood Pressure 134/88 04/16/2024 9:12 AM DISTRIBUTION SPECIALIST Pulse - - Temperature - - Respiratory Rate - - Oxygen Saturation - - Inhaled Oxygen Concentration - - Weight 106.6 kg (235 lb) 04/16/2024 9:12 AM DISTRIBUTION SPECIALIST Height 167.6 cm (5' 6 ) 04/16/2024 9:12 AM DISTRIBUTION SPECIALIST Body Mass Index 37.93 04/16/2024 9:12 AM DISTRIBUTION SPECIALIST Plan of Treatment Health Maintenance Due Date Last Done Comments Colon Cancer Screening-Colonoscopy 1970 Hepatitis C Screening 1970 Pneumococcal vaccine <65 (1 of 2 - PCV) 11/22/1977 DTaP/Tdap/Td Vaccine (1 - Tdap) 11/22/1982 Hepatitis B Screening 11/22/1989 Zoster Vaccine (1 of 2) 09/11/2017 Breast Cancer Screening-Mammogram 03/23/2021 020, 10/23/2017 Depression Screening 2021 2020, 11/17/19 20 Influenza Vaccine (#1) 2023 Cervical Cancer Screening 04/16/20252023, 04/16/2024, 2020, Additional history exists Regular Well Visit/Exam 18-04/16/2025, 04/11/2023, 01/11/2022, Additional history exists Procedures Procedure Name Priority Date/Time Associated Diagnosis Comments THINPREP PROCESSING (MOLECULAR COMPONENT) Routine 04/16/2024 12:30 PM DISTRIBUTION SPECIALIST Immunosuppression due to drug therapy (HCC) Cervical cancer screening HIGH RISK HPV DNA DETECTION WITH GENOTYPING Routine 04/16/2024 12:30 PM DISTRIBUTION SPECIALIST Immunosuppression due to drug therapy (HCC) Cervical cancer screening PAP AND HIGH RISK HPV, REFLEX TO GENOTYPING Routine 04/16/2024 9:47 AM DISTRIBUTION SPECIALIST Immunosuppression due to drug therapy (HCC) Cervical cancer screening SCREENING MAMMOGRAM 2D BILATERAL Schedule Routine, Read Routine (OP Routine) 03/23/2020 from Last 3 Months or Most Recently Relevant to Health Maintenance Results * ThinPrep processing (Molecular component) (04/16/2024 12:30 PM DISTRIBUTION SPECIALIST) Pathologist [facility] ThinPrep processing (Molecular component) Specimen received for processing. Endocervical 04/16/2024 12:3 0 PM DISTRIBUTION SPECIALIST 04/16/2024 9:24 PM DISTRIBUTION SPECIALIST us Jovanna Valderrama MD LAB BODY FLUIDS AND STOOL S ORDERABLES Final Result [facility] [address] Department [place] [address] * High Risk HPV DNA Detection with Genotyping (Molecular component) (04/16/2024 12:30 PM DISTRIBUTION SPECIALIST) Pathologist [facility] HPV HR 16 Not Detected Not Detected HPV HR [address] [facility] HPV HR Non 16/[address] [facility] Comment: Interpretive Data Nucleic acid amplification for detection of high-risk Human Papilloma virus (HPV) is performed by the Ben Josefa 4800 HPV test, which specifically detects high-risk HPV-16, 18, 31, 33, 35, 39, 45, 51, 52, 56, 58, 59, 66, and 68 genotypes. ??This assay has been approved by the [place] Food and Drug Administration for detection of HPV in cervical specimens collected by a physician using an endocervical brush/spatula or cervical broom and placed in the ThinPrep Pap Test PreservCyt collection containers. ??The performance characteristics of this test have been verified by the [facility]. Correlate with separately reported cytology results, as applicable. Interpretive data last revised 22 Endocervical 04/16/2024 12:3 0 PM DISTRIBUTION SPECIALIST 04/16/2024 9:24 PM DISTRIBUTION SPECIALIST Narrative [facility] - 04/20/2024 7:06 PM DISTRIBUTION SPECIALIST Clinical history and diagnosis->1 Number of vials->1 Testing type->Screening Last menstrual period (date if known)->1 Jovanna Valderrama MD LAB BODY FLUIDS AND STOOL S ORDERABLES Final Result [place] [id number] Department [place] [address] * (ABNORMAL) Pap and High Risk HPV and Genotyping (Cytology Component) (04/16/2024 9:47 AM DISTRIBUTION SPECIALIST) Endocervical (Pap test) 04/16/2024 9:47 AM DISTRIBUTION SPECIALIST 04/20/2024 8:41 AM DISTRIBUTION SPECIALIST Narrative [facility] - 04/25/2024 9:30 PM DISTRIBUTION SPECIALIST EPIC results best viewed via link to PDF [place] [id number] [place], [place] ??[address] Tele: ?? Whitney Thompson MD - Viticulturist CYTOLOGY REPORT Note to Patients: This report may contain a detailed description of human tissue sent by a health care provider to the laboratory for pathologic evaluation. The content of this report is essential for diagnosis and may provide important critical findings. This information may be unfamiliar to patients to review without a medical professional present. It is advised that the patient review this report in the presence of a health care provider who can answer questions and explain the details. Patient Name: ??SERENA ROSADO Address: ??[address] [place], [place] ??[address]- Gender: ??F : ??1970 (Age: 53) Service: ?? Location: ?? Hospital #: ??[id number] Patient Type: ??[facility] SPECIMEN Taken: ??04/16/2024 Reported: ??04/25/2024 Physician(s): ? Jovanna Valderrama M.D. FINAL DIAGNOSIS: SOURCE OF SPECIMEN ?- ThinPrep Pap and HPV w/ reflex Genotyping: STATEMENT OF ADEQUACY Source: ??Cervical/Endocervical ?- Satisfactory for interpretation ?- Endocervical /Transformation Zone component present ?- Case screened using computer assisted imaging technology and manually re-screened by a case coordinator. ? GENERAL CATEGORIZATION: ?- Epithelial cell abnormality ? INTERPRETATION: ?- Atypical squamous cells of undetermined significance (ASCUS) ?- Acute Inflammation ? as04/25/2024 21:30Examining Pathologist: Vicky Yanes M.S., CT (ASCP) Report Reviewed and Electronically Signed By ??Miguel Downs M.D.Clerical Data Follow A; G0145, 94745 Z12.4 Z79.899 DIAGNOSIS COMMENT: ? Ancillary Testing: HPV Genotype 16 ? - ??Not Detected ? Reference Range: ? Not Detected HPV Genotype 18 ? - ??Not Detected ? Reference Range: ? Not Detected HPV High Risk Group (31, 33, 35, 39, 45, 51, 52, 56, 58, 59, 66 and 68) ? - ??Not Detected ? Reference Range: ? Not Detected ? This test was performed using the JOSEFA 4800 REPORT IMAGES AND/OR SCANNED DOCUMENTS ONLY VIEWABLE IN PDF FORMAT The Pap test is a screening test used to aid in the detection of cervical cancer and its precursors. It should not be the sole means by which malignant and premalignant lesions are diagnosed. ??Both false negative and false positive results may occur. ??It also has poor sensitivity for the detection of endometrial lesions and should not be used to evaluate suspected endometrial abnormalities. ??For these reasons it is most important to obtain Pap tests at regular intervals, as recommended by your physician or nurse practitioner. ??Frozen section, operating room consultation, gross examination and dissection, and case sign out may have been performed in part or completely in the following laboratories: [facility], [facility], [address] [place] [address]. Jovanna Valderrama MD LAB CYTOLOGY ORDERABLES F inal Result Performing Organization Address City/State/[facility] Co de Phone Number PATHOLOGY [facility] Laboratory Receiving [address] [place] [address] * Screening Mammogram 2D Bilateral (03/23/2020) Anatomical Region Laterality Modality Breast Bilateral Mammography Jovanna Valderrama MD IMG MAMMO PROCEDURES Ellen l Result from Last 3 Months or Most Recently Relevant to Health Maintenance Insurance [employer] [id number] Care Teams Technology Teacher Relationship Specialty Start Date End Date Clinic, Pcp PCP - General 07/09/17
--- OUTSIDE RECORDS SUMMARY | 2024-06-04 09:43 | XMS_ITS | Referral Summary ---
Author Organization [facility] Address [address] [place] [phone] Phone Care Team Providers Care Recreational Therapy Technician Name Role Phone Clinic, Pcp Primary Care Provider Unavailabl e Encounters Date Type Department Care Team Description 04/16/2024 2:00 PM REGIONAL DRIVER - 04/16/2024 11:59 PM REGIONAL DRIVER Hospital Encounter [facility] [address] [place] [address] Immunosuppression due to drug therapy (HCC); Cervical cancer screening Discharge Disposition: Discharge to home or self care 04/16/2024 9:00 AM REGIONAL DRIVER Office Visit [facility] [address] [address] Jovanna Valderrama MD Encounter for gynecological examination without abnormal finding (Primary Dx); Candidal vulvovaginitis; Immunosuppression due to drug therapy (HCC); Cervical cancer screening from Last 3 Months Allergies Active Allergy Reactions Criticality Noted Date [...] 08/07/2017 Assessment & Plan (04/16/2024 3:02 PM REGIONAL DRIVER): Pap smear and breast exam done. Pap done at three years due to immunosuppressive drug use. Schedule mammogram. Return in one year. Assessment & Plan (04/11/2023 9:11 PM REGIONAL DRIVER): Pelvic exam and breast exam done. Schedule [...] given to patient. Rtn in one year. Immunizations Name Administration Dates Next Due MMRV 07/17/2017 Social History Tobacco Use Types Packs/Day Years [...] on file Legal Sex Female 7:26 PM REGIONAL DRIVER Gender Identity Not on file Sexual Orientation Not on file Last Filed Vital Signs Vital Sign Reading Time Taken Comments Blood Pressure 134/88 04/16/2024 9:12 AM REGIONAL DRIVER Pulse - - Temperature - - Respiratory Rate - - Oxygen Saturation - - Inhaled Oxygen Concentration - - Weight 106.6 kg (235 lb) 04/16/2024 9:12 AM REGIONAL DRIVER Height 167.6 cm (5' 6 ) 04/16/2024 9:12 AM REGIONAL DRIVER Body Mass Index 37.93 04/16/2024 9:12 AM REGIONAL DRIVER Plan of Treatment Not on file Procedures Procedure Name Priority Date/Time Associated Diagnosis Comments THINPREP PROCESSING (MOLECULAR COMPONENT) Routine 04/16/2024 12:30 PM REGIONAL DRIVER Immunosuppression due to drug therapy (HCC) Cervical cancer screening HIGH RISK HPV DNA DETECTION WITH GENOTYPING Routine 04/16/2024 12:30 PM REGIONAL DRIVER Immunosuppression due to drug therapy (HCC) Cervical cancer screening PAP AND HIGH RISK HPV, REFLEX TO GENOTYPING Routine 04/16/2024 9:47 AM REGIONAL DRIVER Immunosuppression due to drug therapy (HCC) Cervical cancer screening SCREENING MAMMOGRAM 2D BILATERAL Schedule Routine, Read Routine (OP Routine) 03/23/2020 from Last 3 Months or Most Recently Relevant to Health Maintenance Results * ThinPrep processing (Molecular component) (04/16/2024 12:30 PM REGIONAL DRIVER) ThinPrep processing (Molecular component) Specimen received for processing. Endocervical 04/16/2024 12:3 0 PM REGIONAL DRIVER 04/16/2024 9:24 PM REGIONAL DRIVER us Jovanna Valderrama MD LAB BODY FLUIDS AND STOOL S ORDERABLES Final Result [facility] [address] Department [place] [address] * High Risk HPV DNA Detection with Genotyping (Molecular component) (04/16/2024 12:30 PM REGIONAL DRIVER) HPV HR 16 Not Detected Not Detected HPV HR 18 Not Detected Not Detected [facility] HPV HR Non 16/18 Not Detected Not Detected [facility] Comment: Interpretive Data Nucleic acid amplification for [...] this test have been verified by the [facility]. Correlate with separately reported cytology results, as applicable. Interpretive data last revised 22 Endocervical 04/16/2024 12:3 0 PM REGIONAL DRIVER 04/16/2024 9:24 PM REGIONAL DRIVER Narrative [facility] - 04/20/2024 7:06 PM REGIONAL DRIVER Clinical history and diagnosis->1 Number of vials->1 Testing type->Screening Last menstrual period (date if known)->1 us Jovanna Valderrama MD LAB BODY FLUIDS AND STOOL S ORDERABLES Final Result [facility] [address] Department [place] [address] * (ABNORMAL) Pap and High Risk HPV and Genotyping (Cytology Component) (04/16/2024 9:47 AM REGIONAL DRIVER) Endocervical (Pap test) 04/16/2024 9:47 AM REGIONAL DRIVER 04/20/2024 8:41 AM REGIONAL DRIVER Narrative PATHOLOGY [facility] - 04/25/2024 9:30 PM REGIONAL DRIVER EPIC results best viewed via link to PDF [address] ??[id number] Tele: ?? Whitney Thompson MD - Quality Assurance Auditor CYTOLOGY REPORT Note to Patients: This report [...] and explain the details. Patient Name: ??SERENA MALDONADO Address: ??[address] [place], [place] ??[address]- Gender: ??F : ??1970 (Age: 53) Service: ?? Location: ?? Hospital #: ??[id number] Patient Type: ??[facility] SPECIMEN Taken: ??04/16/2024 Reported: ??04/25/2024 Physician(s): ? Jovanna Valderrama M.D. FINAL DIAGNOSIS: SOURCE OF SPECIMEN ?- ThinPrep Pap and HPV w/ reflex Genotyping: STATEMENT OF ADEQUACY Source: ??Cervical/Endocervical ?- Satisfactory for interpretation ?- Endocervical /Transformation Zone component present ?- Case screened using computer assisted imaging technology and manually re-screened by a can dragger. ? GENERAL CATEGORIZATION: ?- Epithelial cell abnormality ? INTERPRETATION: ?- Atypical squamous cells of undetermined significance (ASCUS) ?- Acute Inflammation ? as/04/25/2024 21:30Examining Pathologist: Miguel Himanshu, M.D. Gail A. Shira, M.S., CT (ASCP) Report Reviewed and Electronically Signed By ??Miguel Downs M.D.Clerical Data Follow A; G0145, 89869 Z12.4 Z79.899 DIAGNOSIS COMMENT: ? Ancillary Testing: [...] ? This test was performed using the StayNTouch 4800 REPORT IMAGES AND/OR SCANNED DOCUMENTS ONLY [...] part or completely in the following laboratories: [facility], [address], [place], [place] [address] [place] [address], [address], [place] [address]. us Jovanna Valderrama MD LAB CYTOLOGY ORDERABLES F inal Result PATHOLOGY [facility] Receiving [address] [place] [id number] * Screening Mammogram 2D Bilateral (03/23/2020) Anatomical Region Laterality Modality Breast Bilateral Mammography Jovanna Valderrama MD IMG MAMMO PROCEDURES Ellen l Result from Last 3 Months or Most Recently Relevant to Health Maintenance Insurance [employer] [facility] [id number] Care Teams Recreational Therapy Technician Relationship Specialty Start Date End Date Clinic, Pcp PCP - General 07/09/17
--- OUTSIDE RECORDS SUMMARY | 2024-06-04 09:43 | XMS_ITS | Encounter Summary ---
Author Organization [employer] Address 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
--- OUTSIDE RECORDS SUMMARY | 2024-06-04 09:43 | XMS_ITS | Encounter Summary ---
Author Organization [employer] Address 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
== END 2024-06-04 09:12 | disposition home or self-care (01) ==
PROVIDERS: PCP Internal Medicine
DX: Z12.31 Encounter for screening mammogram for malignant neoplasm of breast (principal)
CPT/HCPCS: 77063; 77067